=== PATIENT | male | born 1985 | race Hispanic/Latino ===

== ENCOUNTER 2017-03-18 20:58 | Emergency (ER) | payer OTHER ==
[2017-03-18 21:04] VITALS: BP 145/86; PULSE 75; RESP 16; TEMP 98.5; O2SAT 100
[2017-03-18] MEDS ORDERED: Sodium Chloride 0.9% 1,000 ML IV STA (21:12)
[2017-03-18] MEDS ORDERED: TDAP Vaccine 0.5 mL Syr IM ONE (21:12)
--- NOTE | 2017-03-18 21:20 | ED PDOC ---
Syncope/Near Syncope/Dizzyness Time Seen by Provider: 03/18/17 21:03 Chief Complaint (Nursing): Syncope Chief Complaint (Provider): syncope History Per: Patient, EMS History/Exam Limitations: no limitations Current Symptoms Are (Timing): Better Activity At Onset Of Symptoms: Walking Associated Symptoms Preceding Syncopal Episode: Lightheadedness Seizure Or Post-ictal Symptoms: None Possible Causative Factor(s): Other (pain) Additional History Per: Patient Additional Complaint(s): 31 y/o male no past medical history brought in by EMS for eval of syncopal episode. Patient states he rolled his left ankle while walking outside, he noted immediate pain but continued to walk. Patient states he then began to feel lightheaded and had "fuzzy" vision, states he tried to lean on a bench and then remembers waking up on the ground. As per bystanders, patient hit chin on bench, with + LOC. Chin laceration sustained as a result of fall. Pain to left ankle noted. Denies headache, dizziness, nausea/vomiting, vision changes, extremity numbness/weakness, chest pain, shortness of breath, palpitations. Patient states he has had similar symptoms in past as a result of being in pain. Past Medical History Reviewed: Historical Data, Nursing Documentation, Vital Signs Vital Signs: Last Vital Signs Temp 98.5 F 03/18/17 21:01 Pulse 75 03/18/17 21:01 Resp 16 03/18/17 21:01 BP 145/86 03/18/17 21:01 Pulse Ox 100 03/18/17 21:01 - Medical History PMH: No Chronic Diseases - Surgical History Surgical History: Tonsillectomy - Family History Family History: States: Unknown Family Hx - Living Arrangements Living Arrangements: With Family - Social History Current smoker - smoking cessation education provided: No Alcohol: Occasional Drugs: Denies - Home Medications Home Medications: Ambulatory Orders Medication Instructions Recorded Naproxen [Naprosyn] 500 mg PO Q12 PRN #20 tablet 03/19/17 - Allergies Allergies/Adverse Reactions: Allergies Allergy/AdvReac Type Severity Reaction Status Date / Time No Known Allergies Allergy Verified 03/18/17 21:00 Review of Systems ROS Statement: Except As Marked, All Systems Reviewed And Found Negative Musculoskeletal: Positive for: Foot Pain (left ankle) Skin: Positive for: Other (chin laceration) Physical Exam - Reviewed Nursing Documentation Reviewed: Yes Vital Signs Reviewed: Yes - Physical Exam Appears: Positive for: Well, Non-toxic, No Acute Distress Head Exam: Positive for: ATRAUMATIC, NORMAL INSPECTION, NORMOCEPHALIC Skin: Positive for: Normal Color, Rash (2cm steallate laceration noted inferior chin; no active bleeding, surrounding swelling, or tenderness noted. ) Eye Exam: Positive for: Normal appearance, EOMI, PERRL ENT: Positive for: Normal ENT Inspection, Other (+ chipped teeth posterior aspect left and right upper premolars. No intraoral lacerations/tenderness. No mandibular tenderness/deformity. No pain upon opening/closing jaw noted.) Cardiovascular/Chest: Positive for: Regular Rate, Rhythm Respiratory: Positive for: Normal Breath Sounds Gastrointestinal/Abdominal: Positive for: Normal Exam Back: Positive for: Normal Inspection Extremity: Positive for: Normal ROM, Tenderness (left lateral malleolus with mild localized swelling), Capillary Refill (<2 sec b/l LE). Negative for: Calf Tenderness, Deformity Neurologic/Psych: Positive for: Alert, Oriented. Negative for: Motor/Sensory Deficits - Laboratory Results Result Diagrams: 03/18/17 21:40 03/18/17 21:40 - ECG ECG: Positive for: Viewed By Me (reviewed by ED attending) ECG Rhythm: Positive for: Sinus Rhythm O2 Sat by Pulse Oximetry: 100 Pulse Ox Interpretation: Normal - Progress ED Course And Treament: labs, xrays, CT head, IV fluids Verbal consent given by patient for lac repair. (see procedure note) EXAM: CT Head Without Intravenous Contrast CLINICAL HISTORY: 31 years old, male; Signs and symptoms; Syncope and collapse TECHNIQUE: Axial computed tomography images of the head/brain without intravenous contrast. Coronal and sagittal reformatted images were created and reviewed. COMPARISON: No relevant prior studies available. FINDINGS: Brain: Mild volume loss No hemorrhage. No significant white matter disease. No edema. Ventricles: Unremarkable. No ventriculomegaly. Bones/joints: Unremarkable. No acute fracture. Soft tissues: Unremarkable. Sinuses: Unremarkable as visualized. No acute sinusitis. Mastoid air cells: Unremarkable as visualized. No mastoid effusion. IMPRESSION: No intracranial hemorrhage.Please see discussion above. Patient evaluated by podiatry resident on-call for ankle fracture; quinones dressing applied, crutches given. Patient educated on wound care, suture removal 4-[address] Hartman podiatry Follow up primary doctor 2-3 days. Return to ED for fever, increased pain/swelling/redness at site, discharge from site, or other concerning symptoms. Disposition - Clinical Impression Clinical Impression: Syncope, Chin laceration, Ankle fracture - Patient ED Disposition Is Patient to be Admitted: No Counseled Patient/Family Regarding: Studies Performed, Diagnosis, Need For Followup, Rx Given - Disposition Referrals: Madhu Hartman DPM [[facility]] - [facility] [Outside] Disposition: Routine/Home Disposition Time: 00:44 Condition: STABLE Additional Instructions: Follow up with primary doctor in 2-3 days. Follow up with Dr. Hartman for ankle fracture. Suture removal 4-5 days. Return to ED for worsening/concerning symptoms. Prescriptions: Naproxen [Naprosyn] 500 mg PO Q12 PRN #20 tablet PRN Reason: Pain, Moderate (4-7) Instructions: Syncope (ED), Laceration (ED), Care For Your Stitches (ED), Ankle Fracture (ED) Laceration - Laceration Repair chin Wound Length (In cm): 0.98 in Description Of Wound: Irregular, Stellate Anesthesia: Lidocaine 1%, With Epi Wound Examination: Irrigated With Saline, No FB With Wound Exploration, No Tendon Injury With Wound Exploration Wound Closure: Suture Suture Technique And Material Used: Interrupted (bacitracin placed, bandaged, tetanus ordered), Nylon (7 size 5'0), Vicryl (1 size 5'0) Wound Complexity: Intermediate
[2017-03-18] MEDS ORDERED: Lidocaine/Epi 1% 1:100000 20 ML IJ ONE (21:22)
[2017-03-18] MEDS ORDERED: Lidocaine 2% w Epi 1:100,000 Inj IJ ONE (21:26)
[2017-03-18 21:49] LABS: BASO % 0.6 % (0.0-2.0); EOS # 0.2 K/uL (0.0-0.7); EOS % 2.3 % (0.0-4.0); HEMATOCRIT 41.3 % (35.0-51.0); LYMPH # 2.2 K/uL (1.0-4.3); LYMPH % 28.5 % (20.0-40.0); MEAN CELL VOLUME 82.7 fl (80.0-94.0); MEAN CORPUSCULAR HEMOGLOBIN 27.9 pg (27.0-31.0); MEAN CORPUSCULAR HGB CONC 33.7 g/dL (33.0-37.0); MEAN PLATELET VOLUME 9.2 fl (7.2-11.7); MONO # 0.5 K/uL (0.0-0.8); MONO % 6.2 % (0.0-10.0); NEUT # 4.8 K/uL (1.8-7.0); NEUT % 62.4 % (50.0-75.0); RED CELL DISTRIBUTION WIDTH 12.7 % (11.5-14.5); WHITE BLOOD COUNT 7.7 K/uL (4.8-10.8)
[2017-03-18 22:07] LABS: ALB/GLOB RATIO 1.6 (1.0-2.1); ALKALINE PHOSPHATASE 47 U/L (38-126); ALT/SGPT 42 U/L (21-72); AST/SGOT 29 U/L (17-59); BILIRUBIN,TOTAL 0.5 mg/dl (0.2-1.3); BLOOD UREA NITROGEN 18 mg/dl (9-20); CALCIUM 9.2 mg/dL (8.4-10.2); CARBON DIOXIDE 22 mmol/L (22-30); CHLORIDE 104 mmol/L (98-107); GFR AFRICAN-AMERICAN > 60; GLUCOSE,RANDOM 98 mg/dL (75-110); POTASSIUM 3.7 MMOL/L (3.6-5.0); SODIUM 143 mmol/l (132-148); TOTAL PROTEIN 7.4 G/DL (6.3-8.2)
--- NOTE | 2017-03-19 00:38 | CP.PCM.CON ---
History of Present Illness - History of Present Illness History of Present Illness: 31 y/o male seen and evaluated with left ankle sprain. Past Patient History - Past Social History Alcohol: Occasional Drugs: Denies - PSYCHIATRIC Hx Substance Use: No - SURGICAL HISTORY Hx Tonsillectomy: Yes - ANESTHESIA Hx Anesthesia: Yes Hx Anesthesia Reactions: No Meds Allergies/Adverse Reactions: Allergies Allergy/AdvReac Type Severity Reaction Status Date / Time No Known Allergies Allergy Verified 03/18/17 21:00 Results - Vital Signs Recent Vital Signs: Last Vital Signs Temp 98.5 F 03/18/17 21:01 Pulse 75 03/18/17 21:01 Resp 16 03/18/17 21:01 BP 145/86 03/18/17 21:01 Pulse Ox 100 03/18/17 22:52 - Labs Result Diagrams: 03/18/17 21:40 03/18/17 21:40 Labs: Laboratory Results - last 24 hr 03/18/17 21:40 WBC 7.7 RBC 5.00 Hgb 13.9 Hct 41.3 MCV 82.7 MCH 27.9 MCHC 33.7 RDW 12.7 Plt Count 151 MPV 9.2 Neut % (Auto) 62.4 Lymph % (Auto) 28.5 [place] % (Auto) 6.2 Eos % (Auto) 2.3 Baso % (Auto) 0.6 Neut # 4.8 Lymph # 2.2 [place] # 0.5 Eos # 0.2 Baso # 0.0 Sodium 143 Potassium 3.7 Chloride 104 Carbon Dioxide 22 Anion Gap 21 H BUN 18 Creatinine 0.8 Est GFR ( Amer) > 60 Est GFR (Non-Af Amer) > 60 Random Glucose 98 Calcium 9.2 Total Bilirubin 0.5 AST 29 ALT 42 Alkaline Phosphatase 47 Total Protein 7.4 Albumin 4.6 Globulin 2.8 Albumin/Globulin Ratio 1.6 Assessment & Plan - Assessment and Plan (Free Text) Assessment: 31 y/o male seen and evaluated with probable avulsion fracture of fibula with possible ATFL sprain. Plan: Patient evaluated and chart reviewed. Discussed patient with Dr. Hartman. x-rays evaluated; probable avulsion fracture fibula Patient placed in [place] compression dressing, minimal weight bearing surgical shoe and crutches Take OTC NSAIDS; RICE therapy whie at home To f/u with Dr. Hartman.
--- NOTE | 2017-03-19 08:20 | CT ---
PROCEDURE: CT HEAD WITHOUT CONTRAST. HISTORY: syncope COMPARISON: None available. TECHNIQUE: Axial computed tomography images were obtained through the head/brain without intravenous contrast. Radiation dose: Total exam DLP = 866.5 mGy-cm. This CT exam was performed using one or more of the following dose reduction techniques: Automated exposure control, adjustment of the mA and/or kV according to patient size, and/or use of iterative reconstruction technique. FINDINGS: HEMORRHAGE: No intracranial hemorrhage. BRAIN: No mass effect or edema. No atrophy or chronic microvascular ischemic changes. VENTRICLES: Unremarkable. No hydrocephalus. CALVARIUM: Unremarkable. PARANASAL SINUSES: Unremarkable as visualized. No significant inflammatory changes. MASTOID AIR CELLS: Unremarkable as visualized. No inflammatory changes. OTHER FINDINGS: None. IMPRESSION: No evidence of acute intracranial hemorrhage territorial infarct mass effect or midline shift. Preliminary report was submitted by [facility].
--- NOTE | 2017-03-19 08:24 | RAD ---
HISTORY: syncope COMPARISON: No prior. TECHNIQUE: Chest PA and lateral FINDINGS: LUNGS: No active pulmonary disease. PLEURA: No significant pleural effusion identified. No pneumothorax apparent. CARDIOVASCULAR: Normal. OSSEOUS STRUCTURES: No significant abnormalities. VISUALIZED UPPER ABDOMEN: Normal. OTHER FINDINGS: None. IMPRESSION: No active disease.
--- NOTE | 2017-03-19 10:49 | RAD ---
PROCEDURE: Left Ankle Radiographs. HISTORY: rolled ankle COMPARISON: None FINDINGS: BONES: No evidence of acute fracture. JOINTS: No evidence of dislocation. Mild arthritic changes seen. SOFT TISSUES: Mild soft tissue swelling. OTHER FINDINGS: None. IMPRESSION: No radiographic evidence of acute fracture or dislocation.
--- NOTE | 2017-03-20 18:17 | CARD ---
APPROVED REPORT EKG Measurement Heart [id number] <Conclusion> Normal sinus rhythm with sinus arrhythmia Possible Left atrial enlargement Borderline ECG
== END 2017-03-19 01:15 | disposition home or self-care (01) ==
LOC: H.ER 20:58
DX: S01.81XA Laceration without foreign body of other part of head, initial encounter (principal); W18.39XA Other fall on same level, initial encounter; S82.892A Other fracture of left lower leg, initial encounter for closed fracture; X50.0XXA Overexertion from strenuous movement or load, initial encounter; Y93.01 Activity, walking, marching and hiking; Y92.89 Other specified places as the place of occurrence of the external cause; R55 Syncope and collapse; Z23 Encounter for immunization